=== PATIENT | female | born 1955 | race Two or more races ===

== ENCOUNTER 2019-10-01 11:36 | Inpatient (IN) | payer MEDICAID, OTHER ==
[~2019-10-01] VITALS: Ht 157.5 cm; Wt 72.7 kg
[2019-10-01] MEDS ORDERED: SODIUM CHLORIDE 0.9% 1,000 ML IV ONE (11:48)
[2019-10-01] MEDS ORDERED: ACETAMINOPHEN 325 MG TAB PO ONE (12:15)
[2019-10-01 12:43] LABS: Basophils # (auto) 0 10 ^3/uL (0-0.2); Basophils % (auto) 0.2 % (0.0-2.0); Eosinophils # (auto) 0 10 ^3/uL (0-0.8); Hematocrit 44.2 % (36.0-46.0); Hemoglobin 15.3 g/dL (12.2-16.2); Lymphocytes # (auto) 1.2 10 ^3/uL (0.4-5.4); Lymphocytes % (auto) 25.4 % (10.0-50.0); Mean Corpuscular Hemoglobin 29.9 pg (28.0-32.0); Mean Corpuscular Hgb Conc. 34.5 g/dL (32.0-36.0); Mean Corpuscular Volume 86.6 fL (80.0-100.0); Monocytes # (auto) 0.3 10 ^3/uL (0-1.3); Monocytes % (auto) 6.9 % (0.0-12.0); Neutrophils # (auto) 3.2 10 ^3/uL (1.6-8.6); Neutrophils % (auto) 67.5 % (37.0-80.0); Nucleated Red Blood Cells % 0.1 %; Platelet Count (auto) 133 10^3/uL (140-450); Red Blood Cells 5.11 10^6/uL (4.0-5.20); Red Cell Distribution Width 13.9 % (11.8-14.3); White Blood Cell 4.7 10^3/uL (4.4-10.8)
[2019-10-01 12:50] LABS: Albumin 3.5 g/dL (3.4-5.0); Anion Gap 10 (5-15); Blood Urea Nitrogen 14 mg/dL (7-18); Calcium 8.3 mg/dL (8.5-10.1); Carbon Dioxide 24 mmol/L (21-32); Chloride 98 mmol/L (98-107); Glucose 183 mg/dL (74-106); Potassium 3.1 mmol/L (3.5-5.1); Sodium 132 mmol/L (136-145)
[2019-10-01 12:58] LABS: Alanine Aminotransferase 60 U/L (13-56); Alkaline Phosphatase 61 U/L (45-117); Aspartate Aminotransferase 54 U/L (15-37); BUN/Creatinine Ratio 18.2; Bilirubin, Total 0.5 mg/dL (0.2-1.0); CRP High Sensitivity 3.47 mg/dL (< 0.3); GFR African American 97 mL/min; GFR Non-African American 80 mL/min; Lactate Dehydrogenase 271 U/L (84-246)
[2019-10-01] MEDS ORDERED: POTASSIUM CHL 20MEQ/100ML 100 ML IV ONE (13:30)
[2019-10-01] MEDS ORDERED: NITROGLYCERIN 0.4 MG SL TAB SL PRN ×2 (14:00→14:45)
[2019-10-01] MEDS ORDERED: MORPHINE SULF INJ 2 MG/ML SYRINGE 1ML IV PRN ×3 (14:00→14:45)
[2019-10-01] MEDS ORDERED: DOCUSATE SOD 100 MG CAP PO PRN (14:45)
[2019-10-01] MEDS ORDERED: ONDANSETRON HCL 4 MG/2 ML VIAL IV PRN (14:45)
[2019-10-01] MEDS ORDERED: HYDROcodone-ACET 5/325MG TAB PO PRN (14:45)
[2019-10-01] MEDS ORDERED: ACETAMINOPHEN 500 MG TAB PO PRN (14:45)
[2019-10-01] MEDS ORDERED: LORazepam 0.5 MG TAB PO PRN (14:45)
[2019-10-01] MEDS ORDERED: CYCLOBENZAPRINE HCL 10 MG TAB PO PRN (15:00)
[2019-10-01] MEDS ORDERED: DEXTROSE (50%) 50ML SYRG IV PRN (15:00)
[2019-10-01 15:17] LABS: Cholesterol 90 mg/dL (< 200)
[2019-10-01 15:20] VITALS: BP 134/65
[2019-10-01 15:20] LABS: HDL Cholesterol 30 mg/dL (40-59); LDL Cholesterol 49 mg/dL (< 100); Triglycerides 104 mg/dL (< 150)
--- NOTE | 2019-10-01 15:20 | NUR ---
Telemetry admit from [facility] admitted to Telemetry unit after SBAR received. Patient oriented to Blanca Shaw, primary RN, unit, room, bed, and unit policies regarding patient care and visiting hours. Patient now on continuous telemetry monitoring, tele box #5 and telemetry reading on arrival to unit is SR @ 73 BPM. Bed set to lowest position/locked, bedside rails up x2, call light within reach. Instructed patiten to call for assistance. Patient verbalized understanding. Will continue to monitor q1hr and prn.
[2019-10-01 15:24] VITALS: BP 135/64
[2019-10-01] MEDS: SOD CHL 0.9%/ KCL 40MEQ 1,000 ML IV SCH ×2 (16:06→21:34)
[2019-10-01] MEDS: ACCU-CHEK COMFORT CURVE STRIP VI SCH ×2 (16:54→21:33)
[2019-10-01] MEDS: InsuLIN REG 1unit/0.01ml Soln (100units/ml) SC SCH ×2 (16:55→21:33)
--- NOTE | 2019-10-01 16:57 | NUR ---
INCENTIVE SPIROMETER PATIENT PROVIDED WITH IS. EDUCATION ON RISK AND BENEFITS PROVIDED. PATIENT VERBALIZED UNDERSTANDING. RETURN PROVIDED RETURN DEMONSTRATION.
--- NOTE | 2019-10-01 17:21 | NUR ---
URINE SAMPLE URINE SAMPLE COLLECTED AND SENT TO LAB.
--- NOTE | 2019-10-01 17:54 | NUR ---
COVID RECEIVED CALL FROM LUX (MICROBIOLOGY), PER LUX PATIENT IS POSITIVE FOR COVID.
--- NOTE | 2019-10-01 19:20 | NUR ---
Opening Shift Note Assumed care of patient, awake and alert. No S/S of distress/SOB or pain. Safety measures in place bed in lowest position, side rails up x2, and call light within reach. Instructed on POC and to callfor assist PRN; patient verbalized understanding. Will continue to monitor for changes Q1hr and PRN.
[2019-10-01 20:09] LABS: Urine Bacteria FEW /hpf (None Seen); Urine Blood TRACE /uL (Negative); Urine Mucus FEW (None Seen); Urine Specific Gravity 1.013 (1.001-1.035); Urine WBC 4 /hpf (0 - 5)
[2019-10-01 20:22] LABS: Amphetamine Screen, Urine NEGATIVE (NEGATIVE); Barbiturate Scree,Urine NEGATIVE (NEGATIVE); Benzodiazephine Screen, Urine NEGATIVE (NEGATIVE); Cannabinoid Screen, Urine POSITIVE (NEGATIVE); Cocaine Screen, Urine NEGATIVE (NEGATIVE); Phencyclidine Screen, Urine NEGATIVE (NEGATIVE)
[2019-10-01 20:29] LABS: Opiate Scree,Urine NEGATIVE (NEGATIVE)
--- NOTE | 2019-10-01 21:20 | NUR ---
Patient's daughter called inquiring about patient's status. Daughter could not verify password. No information given. Told patient to inform family of password restriction if she wants them to be updated on her health status. Patient changed contact to Naima (sister) [phone], will update chart.
[2019-10-01] MEDS: DOXYCYCLINE 100 MG TAB/CAP PO SCH (21:33)
[2019-10-01] MEDS ORDERED: traZODone HCL 50 MG TAB PO SCH (22:00)
[2019-10-01] MEDS: ALBUTEROL SULF HFA 90MCG INH 200DOSE IN SCH (22:11)
--- NOTE | 2019-10-01 22:11 | NUR ---
MDI ADMINISTERED BY CHIARA CHENG.
[2019-10-02 04:56] VITALS: BP 124/68
[2019-10-02] MEDS: ACCU-CHEK COMFORT CURVE STRIP VI SCH ×2 (04:59→11:30)
[2019-10-02] MEDS: InsuLIN REG 1unit/0.01ml Soln (100units/ml) SC SCH ×2 (04:59→12:33)
[2019-10-02] MEDS: ALBUTEROL SULF HFA 90MCG INH 200DOSE IN SCH ×2 (05:01→15:07)
[2019-10-02] MEDS: SOD CHL 0.9%/ KCL 40MEQ 1,000 ML IV SCH (05:38)
--- NOTE | 2019-10-02 07:56 | NUR ---
RT NOTE: RN ADMINISTERED MDI TX. AT 0501.
[2019-10-02 08:00] VITALS: BP 129/67
[2019-10-02 09:36] LABS: Basophils # (auto) 0 10 ^3/uL (0-0.2); Basophils % (auto) 0.2 % (0.0-2.0); Eosinophils # (auto) 0 10 ^3/uL (0-0.8); Hematocrit 36.9 % (36.0-46.0); Hemoglobin 12.3 g/dL (12.2-16.2); Lymphocytes # (auto) 1.1 10 ^3/uL (0.4-5.4); Mean Corpuscular Hemoglobin 29.1 pg (28.0-32.0); Mean Corpuscular Hgb Conc. 33.2 g/dL (32.0-36.0); Mean Corpuscular Volume 87.6 fL (80.0-100.0); Monocytes # (auto) 0.2 10 ^3/uL (0-1.3); Monocytes % (auto) 6.5 % (0.0-12.0); Neutrophils # (auto) 2.1 10 ^3/uL (1.6-8.6); Neutrophils % (auto) 61.3 % (37.0-80.0); Nucleated Red Blood Cells % 0.1 %; Platelet Count (auto) 119 10^3/uL (140-450); Red Blood Cells 4.21 10^6/uL (4.0-5.20); Red Cell Distribution Width 13.8 % (11.8-14.3); White Blood Cell 3.5 10^3/uL (4.4-10.8)
[2019-10-02 09:51] LABS: INR 1.12 (0.9-1.15); Partial Thromboplastin Time 28.2 sec (23.64-32.05)
[2019-10-02 09:52] LABS: Albumin 2.8 g/dL (3.4-5.0); Anion Gap 7 (5-15); Blood Urea Nitrogen 7 mg/dL (7-18); Calcium 7.3 mg/dL (8.5-10.1); Carbon Dioxide 24 mmol/L (21-32); Chloride 106 mmol/L (98-107); Glucose 174 mg/dL (74-106); Magnesium 1.9 mg/dL (1.6-2.6); Potassium 3.8 mmol/L (3.5-5.1); Sodium 137 mmol/L (136-145)
[2019-10-02] MEDS: DOXYCYCLINE 100 MG TAB/CAP PO SCH (09:58)
[2019-10-02] MEDS ORDERED: CHOLECALCIFEROL (VITD3) 1,000UNIT=25mCg TAB PO SCH (10:00)
[2019-10-02] MEDS ORDERED: PANTOPRAZOLE 40 MG TAB PO SCH (10:00)
[2019-10-02] MEDS ORDERED: LISINOPRIL 5 MG TAB PO SCH (10:00)
[2019-10-02] MEDS ORDERED: ASCORBIC ACID 1,000 MG TAB PO SCH (10:00)
[2019-10-02] MEDS ORDERED: ZINC SULFATE 220mg CAP or TAB PO SCH (10:00)
[2019-10-02] MEDS ORDERED: ENOXAPARIN SOD 40 MG/0.4 ML SYRINGE SC SCH (10:00)
[2019-10-02 10:02] LABS: Alanine Aminotransferase 35 U/L (13-56); Alkaline Phosphatase 44 U/L (45-117); Aspartate Aminotransferase 31 U/L (15-37); BUN/Creatinine Ratio 12.7; Bilirubin, Total 0.4 mg/dL (0.2-1.0); CRP High Sensitivity 3.95 mg/dL (< 0.3); Creatine Kinase IFCC 71 U/L (26-192); GFR African American 144 mL/min; GFR Non-African American 119 mL/min; Phosphorus 1.6 mg/dL (2.5-4.90); Total Protein 6.1 g/dL (6.4-8.2); Uric Acid 2.2 mg/dL (2.6-6.0)
--- NOTE | 2019-10-02 12:00 | NUR ---
MD Spoke to MD Jason Moore, per , new orders for CT Angio of chest and Venous US ordered. also consulted MD Clemons. If MD Clemons, clears patient for discharge and all results come back negative, then patient can be discharged today. Will carry out new orders and cont to monitor patient.
--- NOTE | 2019-10-02 12:30 | NUR ---
Key Account Representative MD Clemons, at bedside aware of patient status. New orders received for ABG on RA received, will carry out new orders and cont to monitor patient.
[2019-10-02] MEDS ORDERED: IOHEXOL 350 MG/ML 100ML IJ ONE (12:34)
--- NOTE | 2019-10-02 12:45 | NUR ---
CT Patient taken to CT via wheelchair. Will cont to monitor patient upon arrival to unit.
[2019-10-02 13:00] VITALS: BP 136/76
--- NOTE | 2019-10-02 14:57 | NUR ---
Technical Coordinator Spoke to MD Clemons regarding ABG, CT, and US results. Per MD Clemons, have patient ambulate and have another ABG done to check if patient qualifies for home O2. Will carry out new orders and will cont to monitor patient. Patient advised to ambulate at this time.
[2019-10-02] MEDS ORDERED: ASCO10003 PO (15:18)
[2019-10-02] MEDS ORDERED: HYDR200T36 PO (15:18)
[2019-10-02] MEDS ORDERED: ZINC220T6 PO (15:18)
[2019-10-02] MEDS ORDERED: IPRIH IN (15:18)
[2019-10-02] MEDS ORDERED: ALBUAER3 IN (15:18)
[2019-10-02] MEDS ORDERED: DOX100T PO (15:18)
[2019-10-02] MEDS ORDERED: CHOL1000 PO (15:18)
--- NOTE | 2019-10-02 15:36 | NUR ---
ABG Per ABG results, patient does not qualify for home O2. Notified MD Clemons, per MD Clemons, patient is cleared to be discharged by his stand point and should follow-up with PCP in 7-14 days and follow-up with Hotel Staff Member in 2-3 weeks. Will carry out discharge orders and notify patient and family.
--- NOTE | 2019-10-02 15:43 | NUR ---
RT NOTE: RN ADMINISTERED MDI AT 1507.
--- NOTE | 2019-10-02 15:46 | NUR ---
Assessment Patient is a 64-year-old female who is alert and oriented. Prior to admission patient lived with family and functioned independently. Patient can care for her own ADLs. Per patient she will return to her prior living arrangements and family will transport her home. Patient informed me she does not have any medical equipment now. Patient informed me her PCP is Dr. LUEVANO. Patient will be following up with her primary doctor after discharge. Advised patient there is a social service consult for [facility]. Informed patient clinical information will be faxed to [facility] and they will refer her to [facility]. Informed patient she has the right to participate in all discharge planning. Patient verbalized understanding and agreed to discharge plan. Addendum: 10/02/19 at 1548 by DUTCH VALDERRAMA Amended: Links added.
[2019-10-02 15:49] VITALS: BP 136/76
[2019-10-02 15:55] VITALS: BP 129/67
[2019-10-02 16:07] VITALS: BP 136/76
--- NOTE | 2019-10-02 17:00 | NUR ---
Discharge instructions given as ordered. Encourage to follow up with PMD as instructed. All questions and concerns addressed. Patient verbalized understanding. Medication reconciliation form completed and copy given to patient. IV removed with catheter intact, pressure dressing applied. Telemetry unit returned to ICU. Patient taken to vehicle via wheelchair with all personal belongings, accompanied by staff, EVS, and Security. No distress noted at time of departure.
[2019-10-04] MEDS ORDERED: LISI-648 PO (04:04)
== END 2019-10-02 17:00 | disposition home or self-care (01) | DRG 137 ==
LOC: ER 11:36 → TELE 11:37 → TELE-EAST 15:26
PROVIDERS: ADMIT Hospitalist; ATTEND Internal Medicine
DX: U07.1 COVID-19 (principal); J12.89 Other viral pneumonia; E11.9 Type 2 diabetes mellitus without complications; E87.6 Hypokalemia; G89.29 Other chronic pain; I10 Essential (primary) hypertension; E66.9 Obesity, unspecified; E78.5 Hyperlipidemia, unspecified; F12.90 Cannabis use, unspecified, uncomplicated; M54.5 Low back pain; Z77.22 Contact with and (suspected) exposure to environmental tobacco smoke (acute) (chronic); Z80.0 Family history of malignant neoplasm of digestive organs; Z79.899 Other long term (current) drug therapy; Z68.29 Body mass index [BMI] 29.0-29.9, adult
CPT/HCPCS: 36415; 36600; 71045; 71275; 80053; 80061; 80307; 81001; 82550; 82728; 82805; 82962; 83036; 83605; 83615; 83735; 83880; 84100; 84443; 84484; 84550; 85025; 85379; 85610; 85730; 86141; 87040; 87070; 87086; 87804; 87880; 93005; 93970; 94640; G0378; J1815; J3480

== ENCOUNTER 2019-10-03 18:10 | Inpatient (IN) | payer MEDICAID ==
[~2019-10-03] VITALS: Ht 157.5 cm; Wt 70.1 kg
[~2019-10-03 18:10] MED LIST: ALBUAER3 IN; ASCO10003 PO; CHOL1000 PO; DOX100T PO; HYDR200T36 PO; IPRIH IN; ZINC220T6 PO
[2019-10-03] MEDS ORDERED: SODIUM CHLORIDE 0.9% 1,000 ML IV ONE (18:59)
[2019-10-03 19:18] LABS: Basophils # (auto) 0 10 ^3/uL (0-0.2); Basophils % (auto) 0.3 % (0.0-2.0); Eosinophils # (auto) 0 10 ^3/uL (0-0.8); Hematocrit 38.7 % (36.0-46.0); Hemoglobin 13.1 g/dL (12.2-16.2); Lymphocytes # (auto) 0.7 10 ^3/uL (0.4-5.4); Lymphocytes % (auto) 16.3 % (10.0-50.0); Mean Corpuscular Hemoglobin 29.5 pg (28.0-32.0); Mean Corpuscular Hgb Conc. 33.9 g/dL (32.0-36.0); Monocytes # (auto) 0.3 10 ^3/uL (0-1.3); Monocytes % (auto) 8.2 % (0.0-12.0); Neutrophils # (auto) 3.1 10 ^3/uL (1.6-8.6); Neutrophils % (auto) 75.2 % (37.0-80.0); Platelet Count (auto) 127 10^3/uL (140-450); Red Blood Cells 4.45 10^6/uL (4.0-5.20); Red Cell Distribution Width 13.7 % (11.8-14.3); White Blood Cell 4.2 10^3/uL (4.4-10.8)
[2019-10-03 19:36] LABS: INR 1.07 (0.9-1.15); Partial Thromboplastin Time 29.5 sec (23.64-32.05)
[2019-10-03 19:39] LABS: Albumin 2.8 g/dL (3.4-5.0); Anion Gap 10 (5-15); Blood Urea Nitrogen 9 mg/dL (7-18); Calcium 7.9 mg/dL (8.5-10.1); Carbon Dioxide 23 mmol/L (21-32); Chloride 101 mmol/L (98-107); Glucose 151 mg/dL (74-106); Potassium 3.3 mmol/L (3.5-5.1); Sodium 134 mmol/L (136-145)
[2019-10-03 19:41] LABS: Alanine Aminotransferase 34 U/L (13-56); Aspartate Aminotransferase 42 U/L (15-37); BUN/Creatinine Ratio 17.6; GFR African American 157 mL/min; GFR Non-African American 129 mL/min
[2019-10-03 19:46] LABS: Alkaline Phosphatase 45 U/L (45-117); Bilirubin, Total 0.4 mg/dL (0.2-1.0); Total Protein 7.1 g/dL (6.4-8.2)
[2019-10-03] MEDS ORDERED: levoFLOXacin 750MG 150 ML IV ONE (21:15)
[2019-10-03] MEDS ORDERED: SODIUM CHLORIDE 0.9% 1,000 ML IV SCH (21:51)
[2019-10-03] MEDS ORDERED: HYDROmorphone HCL 2 MG/ML VL IV PRN (22:00)
[2019-10-03] MEDS ORDERED: ACETAMINOPHEN 500 MG TAB PO PRN (22:00)
[2019-10-03] MEDS ORDERED: ACETAMINOPHEN 325 MG TAB PO PRN (22:00)
[2019-10-03] MEDS ORDERED: HYDROcodone-ACET 5/325MG TAB PO PRN (22:00)
[2019-10-03] MEDS ORDERED: MORPHINE SULF INJ 2 MG/ML SYRINGE 1ML IV PRN ×2 (22:00)
[2019-10-03] MEDS ORDERED: NITROGLYCERIN 0.4 MG SL TAB SL PRN (22:00)
[2019-10-03] MEDS ORDERED: DOCUSATE SOD 100 MG CAP PO PRN (22:00)
[2019-10-03] MEDS ORDERED: DEXTROSE (50%) 50ML SYRG IV PRN (22:00)
[2019-10-03] MEDS ORDERED: LORazepam 0.5 MG TAB PO PRN (22:00)
[2019-10-03] MEDS: ALBUTEROL SULF HFA 90MCG INH 200DOSE IN SCH (23:23)
--- NOTE | 2019-10-03 23:23 | NUR ---
Respiratory note: ASSESSED PT FOR MDI TX. PT IS CURRENTLY ON 2 L/M NC: HR 87, RR 18, SPO2 97%. PT STATES THAT SHE IS NOT SOB AT THIS TIME. WILL CONTINUE TO MDI ADMINISTRATION IN THE AM.
--- NOTE | 2019-10-03 23:50 | NUR ---
MS admit from ER DOROTA MCMILLAN admitted to MS after SBAR received. Patient oriented to DOMINGO RIVERA RN primary RN, unit, room, bed, and unit policies regarding patient care and visiting hours. Patient weighed by bedscale and encouraged to call if they need something. All questions and concerns addressed, patient verbalized understanding.
[2019-10-04] VITALS (8 sets, daily range): BP systolic 111–133; BP diastolic 57–80
[2019-10-04] MEDS: DOXYCYCLINE 100 MG TAB/CAP PO SCH ×3 (00:49→21:39)
[2019-10-04] MEDS: ONDANSETRON HCL 4 MG/2 ML VIAL IV PRN (02:06)
[2019-10-04] MEDS: ACCU-CHEK COMFORT CURVE STRIP VI SCH ×6 (04:00→21:40)
[2019-10-04] MEDS: InsuLIN REG 1unit/0.01ml Soln (100units/ml) SC SCH ×6 (04:00→21:40)
[2019-10-04] MEDS ORDERED: ATOR20TA PO (04:04)
[2019-10-04] MEDS ORDERED: METF-771 PO (04:04)
[2019-10-04] MEDS ORDERED: LISI10TA6 PO (04:04)
--- NOTE | 2019-10-04 06:00 | NUR ---
LAB DRAW DONE AND SENT TO LAB. PATIENT TOLERATED WELL. NO DISTRESS NOTED AND PATIENT DENIES PAIN.
--- NOTE | 2019-10-04 07:08 | NUR ---
URINE SPECIMEN COLLECTED AND SENT TO LAB.
[2019-10-04 07:38] LABS: Urine Bacteria NONE SEEN /hpf (None Seen); Urine Blood Negative /uL (Negative); Urine WBC 6 /hpf (0 - 5)
[2019-10-04] MEDS: ALBUTEROL SULF HFA 90MCG INH 200DOSE IN SCH ×3 (07:50→21:39)
--- NOTE | 2019-10-04 07:50 | NUR ---
Respiratory note: PT GIVEN 2 PUFFS ALBUTEROL MDI 180 MCG WITH SPACER.
[2019-10-04 08:05] LABS: Albumin 2.8 g/dL (3.4-5.0); Potassium 3.6 mmol/L (3.5-5.1)
[2019-10-04 08:10] LABS: BUN/Creatinine Ratio 18.8; Bilirubin, Total 0.4 mg/dL (0.2-1.0); Magnesium 2.1 mg/dL (1.6-2.6); Total Protein 6.9 g/dL (6.4-8.2)
[2019-10-04 08:26] LABS: Basophils # (auto) 0 10 ^3/uL (0-0.2); Basophils % (auto) 0.3 % (0.0-2.0); Eosinophils # (auto) 0 10 ^3/uL (0-0.8); Hematocrit 37.8 % (36.0-46.0); Hemoglobin 13.1 g/dL (12.2-16.2); Lymphocytes # (auto) 0.7 10 ^3/uL (0.4-5.4); Lymphocytes % (auto) 14.8 % (10.0-50.0); Mean Corpuscular Hemoglobin 29.9 pg (28.0-32.0); Mean Corpuscular Hgb Conc. 34.8 g/dL (32.0-36.0); Monocytes # (auto) 0.3 10 ^3/uL (0-1.3); Monocytes % (auto) 6.3 % (0.0-12.0); Neutrophils # (auto) 3.8 10 ^3/uL (1.6-8.6); Neutrophils % (auto) 78.6 % (37.0-80.0); Nucleated Red Blood Cells % 0.1 %; Platelet Count (auto) 137 10^3/uL (140-450); Red Blood Cells 4.39 10^6/uL (4.0-5.20); Red Cell Distribution Width 13.7 % (11.8-14.3); White Blood Cell 4.9 10^3/uL (4.4-10.8)
[2019-10-04] MEDS: ASCORBIC ACID 1,000 MG TAB PO SCH (10:13)
[2019-10-04] MEDS: ZINC SULFATE 220mg CAP or TAB PO SCH (10:13)
[2019-10-04] MEDS: CHOLECALCIFEROL (VITD3) 1,000IU=25mCg TAB PO SCH (10:14)
[2019-10-04] MEDS: ENOXAPARIN SOD 40 MG/0.4 ML SYRINGE SC SCH (10:14)
--- NOTE | 2019-10-04 10:28 | NUR ---
OPENING SHIFT NOTE: PATIENT RESTING IN BED, RESPIRATIONS EVEN AND UNLABORED. ALERT AND ORIENTED [id number] DENIES ANY PAIN AT THIS TIME. NO DISTRESS NOTED AT THIS TIME. 02 SATURATIONS AT 88%ON ROOM AIR. PLACED ON 2L NC. INCENTIVE SPIROMETER AT BEDSIDE, RETURN DEMONSTRATION PRVOIDED BY PATIENT. 500ML. UPDATED ON POC. BED IN LOWEST LOCKED POSITION WITH CALL LIGHT WITHIN REACH. WILL CONTINUE CARE.
--- NOTE | 2019-10-04 14:41 | NUR ---
Mukul ASH AT BEDSIDE TO SEE PATIENT. INFORMED OF PATIENT STATUS. INCLUDING PATIENTS COMPLAINTS OF DIARRHEA. INSTRUCTED TO CONTINUE NS @75MLS/HR AND CHANGE ACCUCHECK FREQUENCY TO ACHS. TIARA.
--- NOTE | 2019-10-04 18:04 | NUR ---
02 TITRATED DOWN TO 1L VIA NC. PATIENT TOLERATING WELL. OXYGEN SATURATIONS AT 96%.
--- NOTE | 2019-10-04 18:33 | NUR ---
IV insertion IV access obtained, via clean sterile technique by inserting 22 gauge catheter at RFA after 1 attempt(s). IV secured properly. No trauma to site. Patient tolerated well. IV TO LAC 20 DC'D DUE TO INFILTRATION. NOTE:
--- NOTE | 2019-10-04 20:15 | NUR ---
Opening Shift Note Assumed care of patient, awake and alert. No S/S of distress/SOB or pain. Patient currently on 1L nasal cannula. POC discussed and questions answered. Bed is locked in lowest position with side rails up x2 for safety, call light is within reach and patient encouraged to call for assistance PRN, will continue to monitor for changes Q1hr and PRN.
[2019-10-05 05:45] VITALS: BP 113/55
[2019-10-05] MEDS: ACCU-CHEK COMFORT CURVE STRIP VI SCH ×4 (06:11→21:33)
[2019-10-05] MEDS: InsuLIN REG 1unit/0.01ml Soln (100units/ml) SC SCH ×4 (06:11→21:33)
[2019-10-05] MEDS: ALBUTEROL SULF HFA 90MCG INH 200DOSE IN SCH ×3 (06:11→21:32)
--- NOTE | 2019-10-05 07:59 | NUR ---
OPENING SHIFT NOTE: PATIENT RESTING IN BED RESPIRATIONS EVEN AND UNLABORED. PATIENT DENIES ANY SOB AT THIS TIME. PATIENT ALERT AND ORIENTED X4. ON 1L NC. INCENTIVE SPIROMETER ENCOURAGED. PROPER RETURN DEMONSTRATIONS PROVIDED. 500ML. DENIES ANY PAIN OR SOB AT THIS TIME. UPDATED ON POC. BED IN LOWEST LOCKED POSITION WITH CALL LIGHT WITHIN REACH.
[2019-10-05 08:00] VITALS: BP 116/64
--- NOTE | 2019-10-05 08:21 | NUR ---
INFORMED Mukul ASH OF NEW ONSET CRACKLES IN BILATERAL BASES. INSTRUCTED TO DISCONTINUE NS INFUSION AND RECIEVED ORDERS FOR LABS. TORB. WILL FOLLOW THROUGH.
[2019-10-05] MEDS: ASCORBIC ACID 1,000 MG TAB PO SCH (09:43)
[2019-10-05] MEDS: ENOXAPARIN SOD 40 MG/0.4 ML SYRINGE SC SCH (09:43)
[2019-10-05] MEDS: CHOLECALCIFEROL (VITD3) 1,000IU=25mCg TAB PO SCH (09:43)
[2019-10-05] MEDS: ZINC SULFATE 220mg CAP or TAB PO SCH (09:43)
[2019-10-05] MEDS: DOXYCYCLINE 100 MG TAB/CAP PO SCH ×2 (09:43→21:33)
--- NOTE | 2019-10-05 10:32 | NUR ---
PATIENT SITTING UP IN CHAIR. ENCOURAGED TO AMBULATE IN ROOM.
[2019-10-05 11:17] LABS: Basophils # (auto) 0 10 ^3/uL (0-0.2); Basophils % (auto) 0.2 % (0.0-2.0); Eosinophils # (auto) 0 10 ^3/uL (0-0.8); Eosinophils % (auto) 0.1 % (0.0-7.0); Hematocrit 36.8 % (36.0-46.0); Hemoglobin 12.4 g/dL (12.2-16.2); Lymphocytes # (auto) 0.8 10 ^3/uL (0.4-5.4); Lymphocytes % (auto) 16.2 % (10.0-50.0); Mean Corpuscular Hemoglobin 29.1 pg (28.0-32.0); Mean Corpuscular Hgb Conc. 33.6 g/dL (32.0-36.0); Mean Corpuscular Volume 86.7 fL (80.0-100.0); Monocytes # (auto) 0.5 10 ^3/uL (0-1.3); Neutrophils # (auto) 3.7 10 ^3/uL (1.6-8.6); Neutrophils % (auto) 74.5 % (37.0-80.0); Nucleated Red Blood Cells % 0.1 %; Platelet Count (auto) 172 10^3/uL (140-450); Red Blood Cells 4.25 10^6/uL (4.0-5.20); Red Cell Distribution Width 13.9 % (11.8-14.3)
[2019-10-05 11:43] LABS: Potassium 3.3 mmol/L (3.5-5.1)
[2019-10-05 11:49] LABS: BUN/Creatinine Ratio 11.5; Calcium 8.5 mg/dL (8.5-10.1)
[2019-10-05 14:00] VITALS: BP 116/68
--- NOTE | 2019-10-05 14:20 | NUR ---
Respiratory note: MDI TX GIVEN BY RN.
--- NOTE | 2019-10-05 14:29 | NUR ---
Mukul ASH AT BEDSIDE. INFORMED OF PATIENT STATUS. INCLUDING MOST RECENT LABS. INCLUDING D-DIMER AND POTASSIUM. INFORMED OF PATIENT DESATURATIONS TO 88% ON ROOM AIR. RECEIVED NEW ORDERS. SEE EMR. WILL FOLLOW THROUGH.
[2019-10-05] MEDS ORDERED: POTASSIUM CHL 20 Meq TABLET PO ONE (14:30)
--- NOTE | 2019-10-05 14:30 | NUR ---
Mukul MITTAL AT BEDSIDE.
[2019-10-05 17:41] VITALS: BP 122/86
--- NOTE | 2019-10-05 20:05 | NUR ---
Opening Shift Note Assumed care of patient, awake and alert. No S/S of distress. Patient states she gets slight SOB when using restroom. Patient is now currently back on 1L nasal cannula saturating at 95%. POC discussed and questions answered. Bed is locked in lowest position with side rails up x2 for safety, call light is within reach and patient encouraged to call for assistance as needed, will continue to monitor for changes Q1hr and PRN.
[2019-10-05 22:00] VITALS: BP 126/61
--- NOTE | 2019-10-05 22:34 | NUR ---
PATIENT CALLED STATING SHE GOT UP TO USE THE RESTROOM AND THEN FELT A LITTLE NAUSEOUS FOLLOWED BY EMESIS. OFFERED PATIENT AKHILNORIS, PATIENT REFUSED AT THIS TIME STATING "IF I THROW UP AGAIN, I'LL CALL YOU FOR IT."
[2019-10-06 05:00] VITALS: BP 116/59
[2019-10-06] MEDS: ACCU-CHEK COMFORT CURVE STRIP VI SCH ×4 (06:11→22:08)
[2019-10-06] MEDS: InsuLIN REG 1unit/0.01ml Soln (100units/ml) SC SCH ×4 (06:11→22:00)
[2019-10-06] MEDS: ALBUTEROL SULF HFA 90MCG INH 200DOSE IN SCH ×3 (06:11→22:25)
--- NOTE | 2019-10-06 06:11 | NUR ---
RESPIRATORY: MDI GIVEN BY RN. HR 81, RR 18, SPO2 92% ON 1 L NC Respiratory note:
--- NOTE | 2019-10-06 07:30 | NUR ---
OPENING SHIFT NOTE: PATIENT RESTING IN BED. RESPIRATIONS EVEN AND UNLABORED. PATIENT ON ROOM AIR WITH OXYGEN SATURATIONS AT 92%. PATIENT DENIES ANY SOB AT THIS TIME. PATIENT UPDATED ON POC. BED IN LOWEST LOCKED POSITION WITH CALL LIGHT WITHIN REACH. INCENTIVE SPIROMETER AT BEDSIDE. 500ML. WILL CONTINUE TO MONITOR.
--- NOTE | 2019-10-06 07:39 | NUR ---
Respiratory note: ABG DRAWN. PT DOES NOT QUALIFY FOR HOME O2. RN WILL BE MADE AWARE.
[2019-10-06 08:06] LABS: Calcium 8.5 mg/dL (8.5-10.1); Potassium 3.6 mmol/L (3.5-5.1)
[2019-10-06 08:08] LABS: BUN/Creatinine Ratio 16.3
[2019-10-06 08:30] VITALS: BP 116/67
[2019-10-06] MEDS: CHOLECALCIFEROL (VITD3) 1,000IU=25mCg TAB PO SCH (09:51)
[2019-10-06] MEDS: ZINC SULFATE 220mg CAP or TAB PO SCH (09:51)
[2019-10-06] MEDS: ASCORBIC ACID 1,000 MG TAB PO SCH (09:51)
[2019-10-06] MEDS: DOXYCYCLINE 100 MG TAB/CAP PO SCH ×2 (09:51→21:28)
[2019-10-06] MEDS: ENOXAPARIN SOD 40 MG/0.4 ML SYRINGE SC SCH (09:51)
--- NOTE | 2019-10-06 11:02 | NUR ---
PRIMO MITTAL REGARDING D-DIMER TRENDING UP. INFORMED PATIENT IS ON ROOM AIR. AWAITING CALL BACK.
--- NOTE | 2019-10-06 11:09 | NUR ---
REGARDING LAB RESULTS: INFORMED Mukul ASH OF PATIENT O2 SATURATIONS ON ROOM AIR AND ABG RESULTS ALONG WITH D-DIMER RESULTS FOR TODAY. RECEIVED ORDERS FOR SOCIAL SERVICE CONSULT FOR HOME 02. ORDER PLACED AND SPOKE WITH DUTCH PETER AND STATED SHE WOULD WORK ON IT WHEN ORDER IS RECEIVED.
[2019-10-06 13:00] VITALS: BP 110/63
--- NOTE | 2019-10-06 13:33 | NUR ---
REGARDING OXYGEN: PATIENT ON ROOM AIR NOW DESATURATING DOWN TO 88% DENIES ANY SOB AT THIS TIME. PATIENT PLACE ON ROOM AIR. OXYGEN SATURATIONS NOW AT 92%.
--- NOTE | 2019-10-06 14:20 | NUR ---
RESPIRATORY: HR 85, RR 14, SPO2 93% ON 1 L NC, BS CLEAR. NO SIGNS OR SYMPTOMS OF RESPIRATORY DISTRESS NOTED AT THIS TIME. Respiratory note:
--- NOTE | 2019-10-06 15:29 | NUR ---
Mukul ASH AT BEDSIDE. INFORMED OF PATIENT STATUS. STATED HE WILL HOLD DISCHARGE ONE MORE DAY SO HE CAN SPEAK TO Mukul WHITMORE. RECEIVED ORDERS FOR NEW MEDICATION IN AM. WILL FOLLOW THROUGH.
--- NOTE | 2019-10-06 17:20 | NUR ---
Assessment Patient is a 64-year-old female who is alert and oriented. Prior to admission patient lived with family and functioned independently. Patient can care for her own ADLs. Per patient she will return to her prior living arrangements and family will transport her home. Patient informed me she does not have any medical equipment now. Patient informed me her PCP is Dr. LUEVANO. Patient will be following up with her primary doctor after discharge. Advised patient there is a social service consult for home oxygen. Patient informed me she is on service with [employer] and would like to see if she is able to receive a shower chair. Informed patient I will inform bedside nurse. Informed patient she has the right to participate in all discharge planning. Patient verbalized understanding and agreed to discharge plan. Advised Nurse Carl patient is on service with [employer] and a resumption order is needed. Informed CHIARA Henry patient is requesting a shower chair. Per CHIARA Henry he will update the order. Faxed clinical information to [employer] requesting for equipment to be deliver to [facility], and [facility]. Per Lil will [employer] they will deliver oxygen and shower chair upon d/c day. Obtain authorization from [facility] [id number]. Informed CHIARA Henry. Addendum: 10/06/19 at 1721 by DUTCH DE DIOS Amended: Links added.
[2019-10-06 18:30] VITALS: BP 99/61
[2019-10-06 19:30] VITALS: BP 118/60
--- NOTE | 2019-10-06 19:30 | NUR ---
Opening Shift Note Assumed care of patient, awake and alert x4. Patient denies pain or shortness of breath at this time. Patient is sitting in bed, with even and unlabored respirations. Patient is on 1L NC, SPO2 93%. No sign/symptoms of distress noted or verbalized at this time. Incentive spirometer noted at the bedside. Encouraged patient to use incentive spirometer at least 10 times every hour with breaks in between, patient verbalized understanding and returned demonstration. Patient able to raise incentive spirometer marker to 500ml. Bed is locked in lowest position, side rails x 2 are up, and call light is within reach.
[2019-10-06] MEDS ORDERED: ENOXAPARIN SOD 40 MG/0.4 ML SYRINGE SC SCH (22:00)
--- NOTE | 2019-10-06 22:25 | NUR ---
Respiratory note: PT'S SCHEDULED MDI TREATMENT WAS GIVEN AT 2225 BY CHIARA QUISPE.
--- NOTE | 2019-10-06 23:20 | NUR ---
Emesis Patient called this RN to collect stool sample. Upon entering room patient was found sitting on the edge of the bed and reported feeling sick. Patient vomited a total of 100ml clear emesis into an emesis bag. This RN offered patient zofran for nausea but patient refused zofran at this time. Patient stated "If I throw up again I'll call you for it." This RN encouraged patient to call for nausea medication if she continues to feel nauseated and encouraged patient to call for assistance as needed, patient verbalized understanding. Will continue care.
[2019-10-06 23:44] VITALS: BP 113/63
--- NOTE | 2019-10-07 00:30 | NUR ---
Stool sample collected Stool sample collected and walked over to lab by this RN.
[2019-10-07 01:10] VITALS: BP 113/63
[2019-10-07 05:00] VITALS: BP 99/52
--- NOTE | 2019-10-07 05:40 | NUR ---
EKG Performed EKG performed as ordered by , see hardchart.
--- NOTE | 2019-10-07 06:10 | NUR ---
Blood Drawn Blood drawn as ordered by and sent to lab via bullet.
[2019-10-07] MEDS: ALBUTEROL SULF HFA 90MCG INH 200DOSE IN SCH ×2 (06:20→14:09)
[2019-10-07] MEDS: ACCU-CHEK COMFORT CURVE STRIP VI SCH ×3 (06:20→16:56)
[2019-10-07] MEDS: InsuLIN REG 1unit/0.01ml Soln (100units/ml) SC SCH ×3 (06:20→16:56)
[2019-10-07 06:33] LABS: Basophils # (auto) 0 10 ^3/uL (0-0.2); Basophils % (auto) 0.3 % (0.0-2.0); Eosinophils # (auto) 0 10 ^3/uL (0-0.8); Eosinophils % (auto) 0.4 % (0.0-7.0); Hematocrit 35.3 % (36.0-46.0); Hemoglobin 12.1 g/dL (12.2-16.2); Lymphocytes # (auto) 1.4 10 ^3/uL (0.4-5.4); Lymphocytes % (auto) 24.2 % (10.0-50.0); Mean Corpuscular Hemoglobin 29.2 pg (28.0-32.0); Mean Corpuscular Hgb Conc. 34.3 g/dL (32.0-36.0); Mean Corpuscular Volume 85.3 fL (80.0-100.0); Monocytes # (auto) 0.7 10 ^3/uL (0-1.3); Monocytes % (auto) 12.5 % (0.0-12.0); Neutrophils # (auto) 3.7 10 ^3/uL (1.6-8.6); Neutrophils % (auto) 62.6 % (37.0-80.0); Nucleated Red Blood Cells % 0.1 %; Platelet Count (auto) 259 10^3/uL (140-450); Red Blood Cells 4.14 10^6/uL (4.0-5.20); Red Cell Distribution Width 13.5 % (11.8-14.3); White Blood Cell 5.9 10^3/uL (4.4-10.8)
--- NOTE | 2019-10-07 06:34 | NUR ---
Low Oxygen Saturation automotive maintenance technician called this RN to notify her that patient's oxygen saturation was in the high 70s. Upon entering the room, patient was noted sitting in bed with her oxygen off. This RN instructed patient to place oxygen back on and to cough and deep breath. Oxygen saturation at this time was in the low 80s, this RN titrated oxygen up to 5L/min. Patient's oxygen saturation came back up to the 90s. This RN then titrated oxygen down to 1L/min. This RN asked patient what she was doing prior to this RN entering the room, patient stated she went into the bathroom to "wash up." This RN instructed patient to leave oxygen on when going to the bathroom, patient verbalized understanding. Patient is currently sitting up in bed, watching television with even and unlabored respirations. Patient is on 1L/min NC, SPO2 91% at this time. No sign/symptoms of distress noted or verbalized at this time. Bed is locked in lowest position, side rails x 2 are up, and call light is within reach.
[2019-10-07 06:48] LABS: Potassium 3.3 mmol/L (3.5-5.1)
[2019-10-07 06:59] LABS: Albumin 2.6 g/dL (3.4-5.0); BUN/Creatinine Ratio 21.1; Bilirubin, Total 0.6 mg/dL (0.2-1.0); Calcium 8.7 mg/dL (8.5-10.1); Total Protein 7.1 g/dL (6.4-8.2)
--- NOTE | 2019-10-07 07:02 | NUR ---
Closing Shift Note Patient is laying in bed, with even and unlabored respirations. SPO2 91% on 1L/min NC. No sign/symptoms of distress noted or verbalized at this time. Bed is locked in lowest position, side rails x 2 are up, and call light is within reach. Will endorse patient care to Carl GUADARRAMA.
--- NOTE | 2019-10-07 07:15 | NUR ---
Respiratory note: PER PT STATES SHE ALREADY SELF ADMINISTERED MDI, RN BRISEIDA CLEARED Emr. PT DENIES ANY CURRENT SOB OR DIFF BREATHING. HR 80 RR 18 SPO2 93% ON 2L N/C. PT AND RN AWARE TO HAVE RT PAGED IF NEEDED.
[2019-10-07 08:30] VITALS: BP 122/67
--- NOTE | 2019-10-07 09:29 | NUR ---
Mukul WHITMORE AT BEDSIDE.
[2019-10-07] MEDS: CHOLECALCIFEROL (VITD3) 1,000IU=25mCg TAB PO SCH (09:39)
[2019-10-07] MEDS: ZINC SULFATE 220mg CAP or TAB PO SCH (09:39)
[2019-10-07] MEDS: ASCORBIC ACID 1,000 MG TAB PO SCH (09:39)
[2019-10-07] MEDS: ENOXAPARIN SOD 100 MG/1 ML SYRINGE SC SCH ×2 (09:39→20:43)
[2019-10-07] MEDS: DOXYCYCLINE 100 MG TAB/CAP PO SCH ×2 (09:39→20:43)
--- NOTE | 2019-10-07 10:30 | NUR ---
D/C Planning Per Randi with [facility] oxygen will be deliver to front lobby between 10:30-11:30am. Per Randi shower chair and concentrate oxygen will be deliver to home and they contact patient daughter and provider ETA. Cas Henry.
[2019-10-07] MEDS: ONDANSETRON HCL 4 MG/2 ML VIAL IV PRN (10:47)
--- NOTE | 2019-10-07 10:48 | NUR ---
IV insertion IV access obtained, via clean sterile technique by inserting 22 gauge catheter at LFA after 1 attempt(s). IV secured properly. No trauma to site. Patient tolerated well. IV TO RFA DC'D DUE TO INFILTRATION. NOTE:
[2019-10-07 13:00] VITALS: BP 104/76
--- NOTE | 2019-10-07 13:16 | NUR ---
OXYGEN DELIVERED TO [facility]. PER DUTCH PETER. SHOWER CHAIR WILL BE DELIVERED HOME.
--- NOTE | 2019-10-07 13:25 | NUR ---
Est energy needs 1348-0650 kcal (25-28 kcal/kg BW 70kg) Est protein needs 56-70g (0.8-1g/kg BW 70kg) Will reassess prn. Addendum: 10/07/19 at [address] Amended: Links added.
--- NOTE | 2019-10-07 15:02 | NUR ---
Respiratory note: 14:00 ALBUTEROL INH ADMINISTERED BY CHIARA DIAZ AT 14:09. RN AWARE TO HAVE RT PAGED IF NEEDED.
[2019-10-07] MEDS ORDERED: POTASSIUM CHL 20 Meq TABLET PO ONE (15:15)
--- NOTE | 2019-10-07 19:10 | NUR ---
Opening Shift Note Assumed care of patient, awake and alert x4. Patient denies pain or shortness of breath at this time. Patient is sitting in bed, with even and unlabored respirations. Patient is on 2L NC, SPO2 94%. No sign/symptoms of distress noted or verbalized at this time. Instructed on plan of care and encouraged patient to call for assistance as needed, patient verbalized understanding. Bed is locked in lowest position, side rails x 2 are up, and call light is within reach.
[2019-10-07 20:00] VITALS: BP 117/63
--- NOTE | 2019-10-07 20:30 | NUR ---
Discharge Discharge instructions given as ordered. Encourage patient to follow up with primary care provider as instructed. All questions and concerns addressed. Patient verbalized understanding. Medication reconciliation form completed and copy given to patient. Prescription for Eliquis given to patient. IV removed with catheter intact, pressure dressing applied. Telemetry unit returned to ICU. Patient taken to vehicle via wheelchair with all personal belongings, accompanied by staff, EVS, and security. No distress noted at time of departure.
== END 2019-10-07 20:30 | disposition home or self-care (01) | DRG 137 ==
LOC: ER 18:11 → OVERFLOW 18:12 → EAST 18:13
PROVIDERS: ADMIT Hospitalist; ATTEND Internal Medicine
DX: U07.1 COVID-19 (principal); J96.01 Acute respiratory failure with hypoxia; J12.89 Other viral pneumonia; J98.11 Atelectasis; E11.9 Type 2 diabetes mellitus without complications; I10 Essential (primary) hypertension; E78.5 Hyperlipidemia, unspecified; Z79.84 Long term (current) use of oral hypoglycemic drugs; Z85.038 Personal history of other malignant neoplasm of large intestine; Z80.0 Family history of malignant neoplasm of digestive organs; Z77.22 Contact with and (suspected) exposure to environmental tobacco smoke (acute) (chronic)
CPT/HCPCS: 36415; 36600; 71045; 80048; 80053; 81001; 82728; 82805; 82962; 83036; 83605; 83615; 83735; 84443; 84484; 85025; 85379; 85610; 85730; 86141; 87040; 87081; 87493; 93005; 94640; 96361; 96365; G0378; J1956; J2405